=== PATIENT | female | born 1945 | race Caucasian/White ===

== ENCOUNTER 2019-03-03 11:13 | Emergency (ER) | payer MEDICARE ==
[~2019-03-03] VITALS: Ht 154.9 cm; Wt 76.7 kg
[~2019-03-03 11:13] MED LIST: ASPI81CH; ATOR40TA PO; CLOP75 PO; DEXL60CA3; LEVSOD88; METO25ER; NITR.4SL
[2019-03-03] MEDS ORDERED: AZIT250 PO (12:42)
[2019-03-03] MEDS ORDERED: LEVSOD125 PO (12:43)
[2019-03-03] MEDS ORDERED: PRED20 PO (12:43)
== END 2019-03-03 13:27 | disposition home or self-care (01) ==
LOC: ER 11:13
DX: S96.912A Strain of unspecified muscle and tendon at ankle and foot level, left foot, initial encounter (principal); X50.1XXA Overexertion from prolonged static or awkward postures, initial encounter
CPT/HCPCS: 29515; 73610; 73630; 99283-25; L1906